=== PATIENT | male | born 1955 | race Caucasian/White ===

== ENCOUNTER 2023-06-06 09:45 | Outpatient (AMB) | payer MEDICARE, SELFPAY ==
[2023-06-06 09:56] VITALS: BP 130/64; PULSE 85; TEMP 36.3; O2SAT 95; BMI 30.6
--- NOTE | 2023-06-06 09:56 | AM.OFFWIN_ITS ---
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 He states this has been 26/02, and coughing fits are severe. He does bring up some yellow sputum. He denies chest pain, wheezing, or shortness of breath. Denies any history of asthma. Non-smoker. He denies any other sick symptoms. Denies fever/chills, sore throat, body aches, or GI symptoms. He has tried some Dayquil/Nyquil without benefit. Denies known exposure to sick contacts. [facility] Social History Patient Tobacco Use Status: Never used Tobacco Review of Systems Const All systems reviewed & are unremarkable except as noted in HPI and below Physical Exam Vital Signs: Last Vital Signs Temp 97.3 F 06/06/23 09:56 Pulse 85 06/06/23 09:56 BP 130/64 06/06/23 09:56 Pulse Ox 95 06/06/23 09:56 Oxygen Delivery Method Room Air 06/06/23 09:56 BMI result Body Mass Index 30.6 Const General: cooperative, healthy appearing and no acute distress HEENT Head: Yes normal to inspection Ears: hearing grossly normal bilaterally General nose exam: Normal external nose present Face and sinus: Yes normal facial exam Neck Neck: Yes no lymphadenopathy Resp Effort & Inspection: normal respiratory effort and Actively coughing Quality: dry Auscultation: clear to auscultation bilaterally Cardio Jugular venous distension: no JVD Palpation: normal PMI Rate: regular rate Rhythm: regular rhythm Skin General skin exam: no rashes or lesions noted Extrem General: Yes capillary refill normal and Yes no clubbing, cyanosis or edema Psych Appearance: grossly normal Mental Status: mental status grossly normal Speech and movement: Normal speech and movement present Assessment & Plan Assessment & Plan (1) Acute bronchitis: Code(s): J20.9 - Acute bronchitis, unspecified Qualifiers: Bronchitis organism: unspecified organism Qualified Code(s): J20.9 - Acute bronchitis, unspecified Plan: Patient with a 1 week history of persistent productive cough. This is making sleep and activity difficult. His lung sounds are clear. I will start him on azithromycin, benzonatate, and a short course of prednisone. We reviewed indications, use, possible side effects of these medications. If he does not improve with treatment, or if he develops any fever, shortness of breath, wheezing, or worsening symptoms, he should return to the clinic or go to the ED for evaluation. He agrees to plan. Medications: New azithromycin For 250 mg dose pack: take 500 mg today (day 1), then 250 mg for 4 days (days 2-5) PO 6 tabs 0RF J20.9 - Acute bronchitis, unspecified prednisone 20 mg PO BID 3 days 6 tabs 0RF benzonatate 100 mg PO BID 7 days PRN 14 caps 0RF cough R05.9 - Cough, unspecified Coding Level of Care Code Est Pt Level 3 (91300) Diagnoses Acute bronchitis, unspecified organism J20.9 Bronchitis organism: unspecified organism
== END 2023-06-06 10:38 | disposition home or self-care (01) ==
PROVIDERS: Visit Provider Nurse Practitioner Family
DX: J20.9 Acute bronchitis, unspecified (principal)
CPT/HCPCS: 99213